=== PATIENT | female | born 1975 | race Caucasian/White ===

== ENCOUNTER 2019-11-20 21:01 | Emergency (ER) | payer BC ==
[2019-11-20] MEDS ORDERED: ONDANSETRON INJ 4 MG/2 ML VIAL IV ONE (21:28)
[2019-11-20] MEDS ORDERED: SODIUM CHLORIDE 0.9% 1000ML 1,000 ML IVS ONE (21:28)
--- NOTE | 2019-11-20 21:31 | ED.PDOC ---
History of Present Illness - General Chief Complaint: Asthma Time Seen by Provider: 11/20/19 21:27 Additional Information: Patient is a 43-year-old female who presents to the ED with chief complaint of generalized weakness. Patient indicates she has a history of recurrent asthma and just returned from [place] 4 days ago where she had an asthma attack. She saw her PCP when she returned who prescribed albuterol inhaler, albuterol nebulizer and steroid inhaler for her and gave her a shot of steroids. Since then patient has felt "on edge" and slightly jittery and she has numbness and tingling in her fingers. Patient denies nausea, vomiting, fever, chills, chest pain, shortness of breath, abdominal pain. She denies dysuria. Patient has no other complaints. - History of Present Illness Allergies/Adverse Reactions: Allergies Penicillins Allergy (Verified 11/20/19 21:36) Sulfa Antibiotics Allergy (Verified 11/20/19 21:36) Home Medications: Ambulatory Orders Ciprofloxacin HCl [Cipro] 500 mg PO BID #20 tab 11/20/19 Review of Systems - Review of Systems Constitutional: States: weakness. Denies: chills, fever EENTM: States: no symptoms reported Respiratory: States: no symptoms reported. Denies: cough, short of breath Cardiology: States: no symptoms reported. Denies: chest pain, palpitations Gastrointestinal/Abdominal: States: no symptoms reported. Denies: abdominal pain, diarrhea, nausea, vomiting Genitourinary: States: no symptoms reported. Denies: dysuria Musculoskeletal: States: no symptoms reported. Denies: muscle pain Skin: States: no symptoms reported. Denies: rash Neurological: States: paresthesia All other Systems: Reviewed and Negative Family Medical History - Family History Mother Family History: Unknown Physical Exam - Physical Exam General Appearance: Alert, Comfortable, No apparent distress, Well Developed, Well Nourished Neck: supple, normal inspection Respiratory: lungs clear, normal breath sounds, no respiratory distress, no accessory muscle use Cardiovascular/Chest: normal peripheral pulses, regular rate, rhythm, no edema, no gallop, no JVD, no murmur Gastrointestinal/Abdominal: normal bowel sounds, non tender, soft Back Exam: normal inspection, no CVA tenderness Neurologic: cane piler II-XII nml as tested, no motor/sensory deficits, alert, normal mood/affect, oriented x 3 Skin Exam: normal color, warm/dry Progress - Progress Progress: 11/20/19 21:32 Differential diagnosis includes but is not limited to medication reaction, anxiety reaction, , electrolyte disorder. 11/20/19 22:29 Patient feeling better at this time. Her CBC shows a mild leukocytosis and this may correlate to an early UTI noted on UA. Urine cultured and I will give Cipro in the ED and DC with same. Discussed with patient that she is slightly anemic and she indicates she will speak with her doctor when she follows up with him this week. Patient feels well and is happy with discharge home with p.o. antibiotics and follow-up outpatient. Vital signs stable, patient is NAD and looks clinically well and I believe is safe for discharge with outpatient follow-up. Follow-up instructions, discharge instructions and return to ED precautions discussed with patient. Patient voices understanding and willingness to comply with instructions. All laboratory results have been discussed with the patient, and all questions answered. Patient is happy with plan. Departure - Departure Clinical Impression: UTI (urinary tract infection) Qualifiers: Urinary tract infection type: site unspecified Hematuria presence: with hematuria Qualified Code(s): N39.0 - Urinary tract infection, site not specified; R31.9 - Hematuria, unspecified Time of Disposition: 22:32 Disposition: Discharge to Home or Self Care Condition: Good Departure Forms: ED Discharge - Pt. Copy, Patient Portal Self Enrollment Instructions: DI for Asthma -- Adult Referrals: PETE TERRY MD [Active Staff] - 1 Week Prescriptions: Ciprofloxacin HCl [Cipro] 500 mg PO BID #20 tab Home Medications: Ambulatory Orders Ciprofloxacin HCl [Cipro] 500 mg PO BID #20 tab 11/20/19
[2019-11-20 21:42] VITALS: TEMP 97.4
[2019-11-20] MEDS ORDERED: CIPROFLOXACIN 500 MG TAB PO ONE (22:25)
[2019-11-20 22:37] VITALS: BP 144/95; O2SAT 97
== END 2019-11-20 22:44 | disposition home or self-care (01) ==
LOC: ER 21:01
DX: N39.0 Urinary tract infection, site not specified (principal); J45.909 Unspecified asthma, uncomplicated; Z79.899 Other long term (current) drug therapy; Z88.0 Allergy status to penicillin; Z88.2 Allergy status to sulfonamides
CPT/HCPCS: 80048; 81001; 81025; 85025; 87086; J2405; J7030